=== PATIENT | female | born 1990 ===

== ENCOUNTER 2021-02-08 16:11 | Emergency (ER) | payer OTHER, SELFPAY ==
[2021-02-08 16:28] VITALS: BP 181/110; PULSE 72; RESP 16; TEMP 36.6; O2SAT 100; BMI 25.8
[2021-02-08 17:22] LABS: Add Manual Diff / Slide Review NO; Basophils Absolute Auto 0 /uL (0-100); Basophils Percent Auto 0.6 % (0-2); Eosinophils Absolute Auto 0 /uL (0-450); Eosinophils Percent Auto 0.6 % (2-4); Hematocrit 37.9 % (36-46); Hemoglobin 12.4 g/dL (12.0-16.0); Lymphocytes Absolute Auto 2300 /uL (1100-4500); Lymphocytes Percent Auto 41.5 % (25-40); Mean Corpuscular HGB Conc 32.7 % (30-36); Mean Corpuscular Hemoglobin 26.8 PG (26-34); Mean Corpuscular Volume 82.1 fL (80-100); Monocytes Absolute Auto 400 /uL (0-900); Monocytes Percent Auto 7.7 % (3-14); Neutrophils Absolute Auto 2800 /uL (1500-7000); Neutrophils Percent Auto 49.6 % (50-75); Platelet Count 193 X10^3/uL (150-400); Red Blood Cell Count 4.61 X10^6/uL (4.0-5.2); Red Cell Distribution Width 13.4 % (11.6-14.8); White Blood Cell Count 5.6 X10^3/uL (4.5-11.0)
[2021-02-08 17:35] LABS: Acetaminophen < 10 ug/mL (10-30); Alanine Aminotransferase 15 IU/L (<35); Albumin 4.4 g/dL (3.5-5.0); Albumin Globulin Ratio 1.2 (1.0-2.8); Alkaline Phosphatase 85 U/L (38-126); Aspartate Aminotransferase 25 IU/L (14-36); BUN Creatinine Ratio 18.3 (6-22); Bilirubin Total 0.2 mg/dL (0.2-1.3); Blood Urea Nitrogen 13 mg/dL (7-17); Calcium 9.5 mg/dL (8.4-10.2); Carbon Dioxide 28 mmol/L (22-32); Chloride 103 mmol/L (98-107); Estimated Glomerular Filt Rate > 60.0 mL/min (>60); Ethanol (ETOH) < 10 mg/dL; Globulin 3.6 g/dL (1.7-4.1); Glucose 88 mg/dL (70-100); HEMOLYSIS < 15 (0-50); Potassium 4.3 mmol/L (3.4-5.1); Salicylate < 1.0 mg/dL (<20); Sodium 139 mmol/L (137-145)
[2021-02-08 17:50] LABS: Free T4, Direct Thyroxine 1.04 ng/dL (0.78-2.19)
[2021-02-08 18:04] LABS: Thyroid Stimulating Hormone 0.834 uIU/mL (0.47-4.68)
--- NOTE | 2021-02-08 18:42 | ED.PSYCH ---
HPI - Psych <Keenan Edwards PA-C - Last Filed: 02/08/21 20:50> General Chief Complaint: Psychiatric Symptoms Stated Complaint: suicidal ideations Time Seen by Provider: 02/08/21 18:37 Source: patient Mode of arrival: Ambulatory History of Present Illness HPI Narrative: Rhonda presents with chief complaint of increased stress, anger and thoughts of thinking it might be better off if she was that occurred earlier today. She reports that over the last 2 months she has been talking to a counselor for her anger. She also started having seizures in October of this year and is currently being evaluated by her PCP with a neurologist consult in place. She has had an MRI 1 month ago and is scheduled for an EEG next week. Because of the seizures, she was just told that she cannot be driving her vehicle. This has left her feeling helpless. She denies any plan to hurt herself or anyone else. She denies any history of this happening in the past. Because of her seizures, she is also being from the [place] and is unsure of what she will do next. She talks with a counselor once weekly but is thinking that she will likely need to increase that back up to 2 times a week. Related Data Allergies Allergy/AdvReac Type Severity Reaction Status Date / Time No Known Drug Allergies Allergy Verified 02/08/21 16:41 Review of Systems <Keenan Edwards PA-C - Last Filed: 02/08/21 20:50> Review of Systems Narrative: As per HPI Patient History <Keenan Edwards PA-C - Last Filed: 02/08/21 20:50> Social History Smoking Status: Never smoker Smoking Status: Never smoker Substance Use Type: does not use Exam <Keenan Edwards PA-C - Last Filed: 02/08/21 20:50> Narrative Exam Narrative: Exam Narrative: Const General: cooperative, healthy appearing, comfortable, no acute distress, well developed and well groomed Nutritional Appearance: average body habitus Orientation: alert and oriented x3 HENMT Head: normal to inspection and atraumatic Ears: hearing grossly normal bilaterally Nose: external nose normal and nares normal Face and sinus: normal facial exam Neck Neck: normal visual inspection and supple Resp Effort & Inspection: normal respiratory effort, able to speak in complete sentences, no audible wheezes, not labored, no nasal flaring and no respiratory distress Neuro General: alert, oriented x3, gait normal, tone normal and moves all extremities Cognition: normal cognition Speech: speech normal Gait: normal gait Psych Appearance: grossly normal and well kempt Mental Status: mental status grossly normal Speech and Movement: speech and movement normal Mood: congruent mood Affect: normal affect Admits suicidal thoughts but denies any suicidal intention or plan. No thoughts of homicide. Initial Vital Signs Initial Vital Signs: Vital Signs Temperature 97.8 F 02/08/21 16:28 Pulse Rate 72 02/08/21 16:28 Respiratory Rate 16 02/08/21 16:28 Blood Pressure 181/110 H 02/08/21 16:28 Pulse Oximetry 100 02/08/21 16:28 <Wyatt Kapadia DO - Last Filed: 02/10/21 23:16> Initial Vital Signs Initial Vital Signs: Vital Signs Temperature 97.8 F 02/08/21 16:28 Pulse Rate 72 02/08/21 16:28 Respiratory Rate 16 02/08/21 16:28 Blood Pressure 181/110 H 02/08/21 16:28 Pulse Oximetry 100 02/08/21 16:28 Course <Keenan Edwards PA-C - Last Filed: 02/08/21 20:50> Orders Ordered: Discontinued Medications Acetaminophen (Acetaminophen 325 Mg Tablet) 975 mg PO NOW ONE Stop: 02/08/21 18:48 Last Admin: 02/08/21 18:53 Dose: 975 mg Documented by: SASHA Vital Signs Vital signs: Vital Signs - 8 hr 02/08/21 16:28 Temperature 97.8 F Pulse Rate 72 Respiratory Rate 16 Blood Pressure 181/110 H Pulse Oximetry 100 <Wyatt Kapadia DO - Last Filed: 02/10/21 23:16> Orders Ordered: Discontinued Medications Acetaminophen (Acetaminophen 325 Mg Tablet) 975 mg PO NOW ONE Stop: 02/08/21 18:48 Last Admin: 02/08/21 18:53 Dose: 975 mg Documented by: SASHA Vital Signs Vital signs: Vital Signs - 8 hr 02/08/21 16:28 Temperature 97.8 F Pulse Rate 72 Respiratory Rate 16 Blood Pressure 181/110 H Pulse Oximetry 100 MDM - Psych <Keenan Edwards PA-C - Last Filed: 02/08/21 20:50> Lab Data Result diagrams: 02/08/21 17:01 02/08/21 17:01 Labs: Lab Results 02/08/21 02/08/21 02/08/21 Range/Units 17:01 17:01 17:01 WBC 5.6 (4.5-11.0) X10^3/uL RBC 4.61 (4.0-5.2) X10^6/uL Hgb 12.4 (12.0-16.0) g/dL Hct 37.9 (36-46) % MCV 82.1 (80-100) fL MCH 26.8 (26-34) PG MCHC 32.7 (30-36) % RDW 13.4 (11.6-14.8) % Plt Count 193 (150-400) X10^3/uL Neut % (Auto) 49.6 L (50-75) % Lymph % (Auto) 41.5 H (25-40) % [place] % (Auto) 7.7 (3-14) % Eos % (Auto) 0.6 L (2-4) % Baso % (Auto) 0.6 (0-2) % Neut # (Auto) 2800 (0304-2751) /uL Lymph # (Auto) 2300 (4751-1715) /uL [place] # (Auto) 400 (0-900) /uL Eos # (Auto) 0 (0-450) /uL Baso # (Auto) 0 (0-100) /uL Sodium 139 (137-145) mmol/L Potassium 4.3 (3.4-5.1) mmol/L Chloride 103 (98-107) mmol/L Carbon Dioxide 28 (22-32) mmol/L BUN 13 (7-17) mg/dL Creatinine 0.71 (0.52-1.04) mg/dL Estimated GFR > 60.0 (>60) mL/min BUN/Creatinine Ratio 18.3 (6-22) Glucose 88 (70-100) mg/dL Calcium 9.5 (8.4-10.2) mg/dL Total Bilirubin 0.2 (0.2-1.3) mg/dL AST 25 (14-36) IU/L ALT 15 (<35) IU/L Alkaline Phosphatase 85 (38-126) U/L Total Protein 8.0 (6.3-8.2) g/dL Albumin 4.4 (3.5-5.0) g/dL Globulin 3.6 (1.7-4.1) g/dL Albumin/Globulin Ratio 1.2 (1.0-2.8) TSH 0.834 (0.47-4.68) uIU/mL Free T4 1.04 (0.78-2.19) ng/dL Salicylates < 1.0 (<20) mg/dL Acetaminophen < 10 L (10-30) ug/mL Ethyl Alcohol < 10 ( - 10) mg/dL Point of Care Testing Test Results Negative Urine Dip Bedside Urine Glucose Negative Bedside Urine Bilirubin - Negative Bedside Urine Ketone - Negative Urine Specific Republic 1.030 Bedside Urine Occult Blood +++ Bedside Urine pH 6.0 Bedside Urine Protein - Negative Bedside Urine Urobilinogen - Negative Bedside Urine Nitrite - Negative Bedside Urine Leukocytes - Negative Esterase MDM Narrative Medical decision making narrative: Patient is well-appearing at this time. Plan is in place through social Work and the patient. She has an appointment set up with her therapist tomorrow. She was given the emergency crisis lines and encouraged to return here if her symptoms should worsen in any way. She reports that now that she is here she has been able to wrap her head around what is going on. She no longer has any thoughts of wanting to hurt herself at this time. <Wyatt Kapadia, DO - Last Filed: 02/10/21 23:16> Lab Data Labs: Lab Results 02/08/21 02/08/21 02/08/21 Range/Units 17:01 17:01 17:01 WBC 5.6 (4.5-11.0) X10^3/uL RBC 4.61 (4.0-5.2) X10^6/uL Hgb 12.4 (12.0-16.0) g/dL Hct 37.9 (36-46) % MCV 82.1 (80-100) fL MCH 26.8 (26-34) PG MCHC 32.7 (30-36) % RDW 13.4 (11.6-14.8) % Plt Count 193 (150-400) X10^3/uL Neut % (Auto) 49.6 L (50-75) % Lymph % (Auto) 41.5 H (25-40) % [place] % (Auto) 7.7 (3-14) % Eos % (Auto) 0.6 L (2-4) % Baso % (Auto) 0.6 (0-2) % Neut # (Auto) 2800 (2812-1420) /uL Lymph # (Auto) 2300 (0654-8460) /uL [place] # (Auto) 400 (0-900) /uL Eos # (Auto) 0 (0-450) /uL Baso # (Auto) 0 (0-100) /uL Sodium 139 (137-145) mmol/L Potassium 4.3 (3.4-5.1) mmol/L Chloride 103 (98-107) mmol/L Carbon Dioxide 28 (22-32) mmol/L BUN 13 (7-17) mg/dL Creatinine 0.71 (0.52-1.04) mg/dL Estimated GFR > 60.0 (>60) mL/min BUN/Creatinine Ratio 18.3 (6-22) Glucose 88 (70-100) mg/dL Calcium 9.5 (8.4-10.2) mg/dL Total Bilirubin 0.2 (0.2-1.3) mg/dL AST 25 (14-36) IU/L ALT 15 (<35) IU/L Alkaline Phosphatase 85 (38-126) U/L Total Protein 8.0 (6.3-8.2) g/dL Albumin 4.4 (3.5-5.0) g/dL Globulin 3.6 (1.7-4.1) g/dL Albumin/Globulin Ratio 1.2 (1.0-2.8) TSH 0.834 (0.47-4.68) uIU/mL Free T4 1.04 (0.78-2.19) ng/dL Salicylates < 1.0 (<20) mg/dL Acetaminophen < 10 L (10-30) ug/mL Ethyl Alcohol < 10 ( - 10) mg/dL Point of Care Testing Test Results Negative Urine Dip Bedside Urine Glucose Negative Bedside Urine Bilirubin - Negative Bedside Urine Ketone - Negative Urine Specific Republic 1.030 Bedside Urine Occult Blood +++ Bedside Urine pH 6.0 Bedside Urine Protein - Negative Bedside Urine Urobilinogen - Negative Bedside Urine Nitrite - Negative Bedside Urine Leukocytes - Negative Esterase Discharge Plan Departure Patient Disposition: Home Clinical Impression: Depression with suicidal ideation Instructions: DI for Suicidal Ideation-Adult Activity Restrictions/Additional Instructions: It was very nice to meet you this evening. I am so sorry that you are going through this hard situation right now. Please use the resources that were provided to by the social media developer to get more help. I would like you to follow-up with your counselor as we discussed. If you start to have any plans of hurting yourself or anyone else do not hesitate return immediately for re-evaluation. Thank you Keenan Edwards PA-C <Wyatt Kapadia DO - Last Filed: 02/10/21 23:16> Cosign ED Attending Cosignature Attestation: I was immediately available in the department for consultation. This documentation has been reviewed and I agree with assessment and plan. Supervised by Wyatt Kapadia DO
[2021-02-08] MEDS: ACETAMINOPHEN 325 MG TABLET 975 MG PO (18:53)
--- NOTE | 2021-02-08 19:19 | CM.SWNOTE ---
FACILITY COORDINATOR Assessment FACILITY COORDINATOR - Rail Detector Car Operator Assessment FACILITY COORDINATOR/Rail Detector Car Operator Assessment Time Spent with Patient Start date 02/08/21 Visit Start Time 18:00 End date 02/08/21 Visit End Time 18:45 Total time Care Management spent on 45 patient visit-in minutes Mental Health Screening Include Onset, Duration, Intensity Presenting Problem Patient presents to the ED with concerns for SI, feeling frustrated and a burden. Precipitating Event(s) Patient started having seizures in October 2020 and has not been able to drive since then, patient had a seizure recently and continues to not be able to drive until she is free of seizures for 6 months. Patient Strengths Patient has good supports and is seeking help. Current Behavioral Health Provider(s) Patient sees therapist at [facility], Provider, Ph. [facility] and has appt with therapist tomorrow. Psych. Hx Mental Health and Chemical Patient has hx of depression, Dependency and seizures. Patient recently prescribed Sertaline. Patient denies substance use. Family Hx of Behavioral Abuse None reported Psychiatric Hospitalizations (date(s)/ No hx. location) Psychosocial information & Support Patient is 30 y/o female who Systems resides in [place], moved here from the [facility]. Patient has friends, coworkers and family via phone as supports. School/Work Active in the [employer] Legal Concerns Legal Matters - Outstanding Issues None reported Mental Status Orientation (Person/Place/Time) A/Ox4 Stated Mood guilty Affect (Congruent with Mood?) euthymic, full range, congruent with mood Thought Content - Specify/Describe None reported Obsessions, Delusions, Hallucinations Thought Processes (Jakmnyr-Ueyparlw-Ybal coherent Ellwngas-Gsnlfkvv-Uxbjodhhny- Hdfokcpqqxhqpt-Lexvvfz-Symxgihpuaqp- Thought Blocking) Speech (Mgzcoc-Lwea-Xaaluob-Rapid-Soft- normal/soft Loud-Pressured) Motor (Uavixr-Tjmqtoejy-Qsft-Other) Normal, not formally assessed Insight (Nbuj-Cetr-Fsgg/Limited) Fair/Good Judgement (Hpxd-Zulz-Pisl/Limited) Fair Impulse Control (Adequate-Impaired) Adequate Memory (Rpefwcywo-Fffmex-Enbdue, Intact Impaired-Intact) Concentration (Intact-Impaired) Intact Attention (Intact-Impaired) Intact Behavior (Appropriate-Inappropriate) Appropriate Additional Comment Patient is calm and communicative. Risk Assessment Suicidal Ideation (Plan) Yes Homicidal Ideation (Plan) No Comment Patient endorses thoughts of SI, no specific plan. Patient denies HI. Patient endorses thoughts of people being better off without her because she is a burden and endorses feeling really low today and she would have grabbed anything to harm herself but she did not. Patient endorses feeling better after speaking with her friend and mother. Intervention Intervention FACILITY COORDINATOR enters room to meet with patient. Patient is present with co-worker who patient feels comfortable meet with. Patient endorses having a bad day earlier and feeling like a burden and guilty about the need for others to provide transportation for her due to her seizures. Patient endorses that she thought of harming herself and SI earlier today but denies current SI. Patient endorses it is mostly frustration, anger and guilt. Patient endorses that she has seen a therapist since October 2020 when she started having seizures and she has an appt tomorrow. Patient endorses she is not interested in inpatient and states that she receives more support from communicating with friends, family and therapist. FACILITY COORDINATOR provides crisis contact information to patient and patient's friend endorses he is well versed in mental health support and an ongoing support for patient as well. It is the opinion of this FACILITY COORDINATOR that patient is safe to d/c to home. FACILITY COORDINATOR reviews the above with ED provider Keenan Edwards PA-C who indicates agreement and understanding. Plan RA Plan Patient to d/c to home when medically clear with crisis contact information and a f/u outpatient appt tomorrow. JT Pastrana
== END 2021-02-08 19:13 | disposition home or self-care (01) ==
PROVIDERS: Emergency Medicine; Emergency Provider Physician Assistant
DX: R45.851 Suicidal ideations (principal); F32.A Depression, unspecified
CPT/HCPCS: 36415; 80053; 80320; 80329; 81003; 81025; 84439; 84443; 85025; 99284; G0480

== ENCOUNTER 2021-07-04 12:24 | Emergency (ER) | payer OTHER, SELFPAY ==
[2021-07-04 12:29] VITALS: BP 146/84; PULSE 72; RESP 16; TEMP 36.3; O2SAT 97; BMI 27.8
--- NOTE | 2021-07-04 12:43 | ED.SEIZURE ---
HPI - Seizure General Chief Complaint: Seizure Stated Complaint: Seizure Time Seen by Provider: 07/04/21 12:34 History of Present Illness HPI Narrative: Patient is a 30-year-old female history of seizures he takes Keppra presenting today with seizure. [facility] [place] [facility] with. She was previously diagnosed intubated and in the ICU in different state. She says they are changing her medications he. She has also been having increasing migraine she had an appointment her primary care provider today for her migraines they are trying to her medications for that. While waiting to see the doctor she had 2 seizures 1 minute apart. She says he now generally feels weak. She also had some added stress she has some family issues going on with her mother. She says that stress also makes her seizures worse. She has not had any fever or chills. No injury from her seizure today. She is ambulatory in the emergency department. Related Data Allergies Allergy/AdvReac Type Severity Reaction Status Date / Time No Known Drug Allergies Allergy Verified 02/08/21 16:41 Review of Systems Review of Systems Narrative: GENERAL: Denies chills, fatigue, malaise, fever, sweats, travel HEENT: Denies sinus pain, ear pain, sore throat, difficulty swallowing, neck pain RESPIRATORY: Denies dyspnea, cough, wheezing, hemoptysis, sputum. CARDIOVASCULAR: Denies chest pain, palpitations, orthopnea, edema GASTROINTESTINAL: Denies nausea, vomiting, abdominal pain, diarrhea, constipation, melena. : Denies dysuria, frequency, incontinence, hematuria, urinary retention, flank pain. MUSCULOSKELETAL: Denies weakness, joint pain, or bony pain SKIN: No rash, no erythema, no pruritus NEUROLOGIC: See HPI PSYCHIATRIC: No concerning psychosocial issues. 12 point review of systems is negative except for those stated above and HPI Patient History Medical History Seizure Social History Smoking Status: Never smoker Smoking Status: Never smoker Substance Use Type: does not use Exam Initial Vital Signs Initial Vital Signs: Vital Signs Temperature 97.4 F L 07/04/21 12:29 Pulse Rate 72 07/04/21 12:29 Respiratory Rate 16 07/04/21 12:29 Blood Pressure 146/84 H 07/04/21 12:29 Pulse Oximetry 97 07/04/21 12:29 GENERAL: Alert well-appearing 30-year-old female in no acute distress. HEENT: Head atraumatic,EOMI, pupils reactive, face symmetric, moist mucous membranes CARDIOVASCULAR: Regular rate and rhythm without murmurs, rubs or gallops. RESPIRATORY: Breath sounds equal bilaterally, no wheezes rales or rhonchi. ABDOMEN: Soft, nontender. Normoactive bowel sounds all 4 quadrants. No guarding or rebound. EXTREMITIES: Normal range of motion, no clubbing or edema. Neurovascularly intact NEUROLOGICAL: Alert and oriented x4.Normal gait and speech. Cranial nerves II through XII grossly intact. Good rabuvo-ed-xpln, good bjbi-ex-ygfo, strength equal bilaterally, no dysarthria or aphasia, sensation in tact to soft touch bilaterally, no visual changes, no facial droop SKIN: Warm, dry, no laceration, no petechiae, no rashes or lesions. Scores NIH Stroke Scale Level of Conciousness: Alert, keenly responsive Ask month/age: Answers both questions correctly. Open/close eyes, close hand: Performs both tasks correctly Best gaze horizontal: Normal Visual vergara: No visual loss Facial palsy: Normal symetrical movement Left arm drift: No drift for full 10 sec Right arm drift: No drift for full 10 sec Left leg drift: No drift for full 5 sec Right leg drift: No drift for full 5 sec Limb ataxia: Absent Sensory on face/arms/legs: Normal, no sensory loss Best language: No aphasia, normal Dysarthria: Normal Extinction or inattention: No abnormality Total NIH Stroke scale score: 0 Course Orders Ordered: ED Orders 07/04/21 12:35 Test Urine Stat Urinalysis and Microscopic Stat Urine Drug Screen, Rapid Stat 07/04/21 12:44 CT head/brain wo con Stat CMP [Comprehensive Metabolic Panel] Stat 07/04/21 13:07 Complete Blood Count AUTO DIFF Stat Magnesium Stat Prolactin Stat Discontinued Medications Sodium Chloride (Normal Saline 0.9%) 1,000 mls @ 1,000 mls/hr IV BOLUS ONE Stop: 07/04/21 13:42 Last Infusion: 07/04/21 14:16 Dose: 0 mls/hr Documented by: Admin: 07/04/21 13:21 Dose: 1,000 mls/hr Documented by: CLARKE Vital Signs Vital signs: Vital Signs - 8 hr 07/04/21 12:29 07/04/21 12:58 07/04/21 13:00 Temperature 97.4 F L Pulse Rate 72 69 71 Respiratory Rate 16 25 H 14 Blood Pressure 146/84 H Pulse Oximetry 97 100 07/04/21 13:29 07/04/21 13:30 07/04/21 14:00 Temperature Pulse Rate 65 67 71 Respiratory Rate 19 15 27 H Blood Pressure 135/84 135/85 Pulse Oximetry 100 MDM - Seizure Lab Data Result diagrams: 07/04/21 13:07 07/04/21 12:44 Labs: Lab Results 07/04/21 07/04/21 07/04/21 Range/Units 12:35 12:35 12:35 WBC (4.5-11.0) X10^3/uL RBC (4.0-5.2) X10^6/uL Hgb (12.0-16.0) g/dL Hct (36-46) % MCV (80-100) fL MCH (26-34) PG MCHC (30-36) % RDW (11.6-14.8) % Plt Count (150-400) X10^3/uL Neut % (Auto) (50-75) % Lymph % (Auto) (25-40) % Whitman % (Auto) (3-14) % Eos % (Auto) (2-4) % Baso % (Auto) (0-2) % Neut # (Auto) (7187-0366) /uL Lymph # (Auto) (6140-0040) /uL Whitman # (Auto) (0-900) /uL Eos # (Auto) (0-450) /uL Baso # (Auto) (0-100) /uL Sodium (137-145) mmol/L Potassium (3.4-5.1) mmol/L Chloride (98-107) mmol/L Carbon Dioxide (22-32) mmol/L BUN (7-17) mg/dL Creatinine (0.52-1.04) mg/dL Estimated GFR (>60) mL/min BUN/Creatinine Ratio (6-22) Glucose (70-100) mg/dL Calcium (8.4-10.2) mg/dL Magnesium (1.6-2.3) mg/dL Total Bilirubin (0.2-1.3) mg/dL AST (14-36) IU/L ALT (<35) IU/L Alkaline Phosphatase (38-126) U/L Total Protein (6.3-8.2) g/dL Albumin (3.5-5.0) g/dL Globulin (1.7-4.1) g/dL Albumin/Globulin Ratio (1.0-2.8) Prolactin (3.0-18.6) ng/mL Urine Color Yellow Urine Appearance Clear Urine pH 7.0 (4.5-8.0) Ur Specific [place] 1.010 (1.000-1.035) Urine Protein Negative (Negative) Urine Glucose (UA) Negative (Negative) g/dL Urine Ketones Negative (NEGATIVE) Urine Occult Blood Trace-lysed (Negative) Urine Nitrate Negative (Negative) Urine Bilirubin Negative (NEGATIVE) Urine Urobilinogen 0.2 (0.2) E.U./dL Ur Leukocyte Esterase Negative (NEGATIVE) Urine RBC 1-5/hpf (0-5/HPF) Urine WBC None seen (0-5/HPF) Urine Bacteria None seen (None) Ur Culture Indicated? Cult not indicated Urine Test Negative (Negative) U Opiates 300ng/mL cut Negative (Negative) Ur Oxycodone Screen Negative (Negative) Urine Methadone Screen Negative (Negative) Ur Barbiturates Screen Negative (Negative) U Tricyclic Antidepress Negative (Negative) Ur Phencyclidine Scrn Negative (Negative) Ur Amphetamines Screen Negative (Negative) U Methamphetamines Scrn Negative (Negative) Ur MDMA Scrn (Ecstasy) Negative (Negative) U Benzodiazepines Scrn Negative (Negative) Urine Cocaine Screen Negative (Negative) U Marijuana (THC) Screen Negative (Negative) 07/04/21 07/04/21 07/04/21 Range/Units 12:44 13:07 13:07 WBC 9.8 (4.5-11.0) X10^3/uL RBC 4.33 (4.0-5.2) X10^6/uL Hgb 11.6 L (12.0-16.0) g/dL Hct 35.5 L (36-46) % MCV 82.0 (80-100) fL MCH 26.8 (26-34) PG MCHC 32.7 (30-36) % RDW 13.8 (11.6-14.8) % Plt Count 175 (150-400) X10^3/uL Neut % (Auto) 88.2 H (50-75) % Lymph % (Auto) 10.1 L (25-40) % Whitman % (Auto) 1.5 L (3-14) % Eos % (Auto) 0.0 L (2-4) % Baso % (Auto) 0.2 (0-2) % Neut # (Auto) 8700 H (2534-2896) /uL Lymph # (Auto) 1000 L (9929-9510) /uL Whitman # (Auto) 100 (0-900) /uL Eos # (Auto) 0 (0-450) /uL Baso # (Auto) 0 (0-100) /uL Sodium 137 (137-145) mmol/L Potassium 4.2 (3.4-5.1) mmol/L Chloride 107 (98-107) mmol/L Carbon Dioxide 23 (22-32) mmol/L BUN 12 (7-17) mg/dL Creatinine 0.70 (0.52-1.04) mg/dL Estimated GFR > 60.0 (>60) mL/min BUN/Creatinine Ratio 17.1 (6-22) Glucose 127 H (70-100) mg/dL Calcium 9.1 (8.4-10.2) mg/dL Magnesium 2.1 (1.6-2.3) mg/dL Total Bilirubin 0.4 (0.2-1.3) mg/dL AST 19 (14-36) IU/L ALT 16 (<35) IU/L Alkaline Phosphatase 65 (38-126) U/L Total Protein 7.9 (6.3-8.2) g/dL Albumin 4.4 (3.5-5.0) g/dL Globulin 3.5 (1.7-4.1) g/dL Albumin/Globulin Ratio 1.3 (1.0-2.8) Prolactin 19.9 H (3.0-18.6) ng/mL Urine Color Urine Appearance Urine pH (4.5-8.0) Ur Specific [place] (1.000-1.035) Urine Protein (Negative) Urine Glucose (UA) (Negative) g/dL Urine Ketones (NEGATIVE) Urine Occult Blood (Negative) Urine Nitrate (Negative) Urine Bilirubin (NEGATIVE) Urine Urobilinogen (0.2) E.U./dL Ur Leukocyte Esterase (NEGATIVE) Urine RBC (0-5/HPF) Urine WBC (0-5/HPF) Urine Bacteria (None) Ur Culture Indicated? Urine Test (Negative) U Opiates 300ng/mL cut (Negative) Ur Oxycodone Screen (Negative) Urine Methadone Screen (Negative) Ur Barbiturates Screen (Negative) U Tricyclic Antidepress (Negative) Ur Phencyclidine Scrn (Negative) Ur Amphetamines Screen (Negative) U Methamphetamines Scrn (Negative) Ur MDMA Scrn (Ecstasy) (Negative) U Benzodiazepines Scrn (Negative) Urine Cocaine Screen (Negative) U Marijuana (THC) Screen (Negative) Imaging Data CT scan - head: Radiologist's Impression: PROCEDURE:? CT HEAD/BRAIN WO CON ? INDICATIONS:? worsening migraines and headaches ? TECHNIQUE:? Noncontrast 4.5 mm thick angled axial sections acquired from the foramen magnum to the vertex, with coronal and sagittal reformats.? For radiation dose reduction, the following was used:? automated exposure control, adjustment of mA and/or kV according to patient size.? ? COMPARISON:? None. ? FINDINGS:? Image quality:? Excellent.? ? CSF spaces:? Basal cisterns are patent.? No extra-axial fluid collections.? Ventricles are normal in size and shape.? ? Brain:? No midline shift.? No intracranial masses or hemorrhage.? Terry-white matter interface is normal.? ? Skull and face:? Calvarium and visualized facial bones are intact, without suspicious lesions.? ? Sinuses:? Visualized sinuses and mastoids are clear.? ? IMPRESSION:? ? 1. No acute intracranial abnormalities. ? ? Dictated by: Keira Orellana M.D. on 07/04/2021 at 13:44 ? ? MDM Narrative Medical decision making narrative: PATIENT OVERALL IS FEELING BETTER. BLOOD WORK IS OVERALL REASSURING. SHE DOES HAVE SOMEONE WHO SHE FOLLOWS FOR HER SEIZURES. RECOMMEND she follow-up as an outpatient. Discharge Plan Departure Patient Disposition: Home Clinical Impression: Seizure Instructions: DI for Seizure Disorder -- Adult Activity Restrictions/Additional Instructions: DO NOT dRIVE *You have been diagnosed with seizure *What to do: At this time please follow-up with [facility]. If you have recurrence of seizure for more frequent seizures your medication may need to be adjusted. *Continue to take medications as directed *Follow up with your primary care provider in 2-3 days or call [phone] *Return to ER if you should have recurrent seizure, confusion, weakness, numbness, tingling or any new, worsening or concerning symptoms Referrals: Boo Rivas MD [Primary Care Provider] - Stand Alone Forms: Work Release Note
--- NOTE | 2021-07-04 12:44 | DI.CT.S_ITS ---
PROCEDURE: CT HEAD/BRAIN WO CON INDICATIONS: worsening migraines and headaches TECHNIQUE: Noncontrast 4.5 mm thick angled axial sections acquired from the foramen magnum to the vertex, with coronal and sagittal reformats. For radiation dose reduction, the following was used: automated exposure control, adjustment of mA and/or kV according to patient size. COMPARISON: None. FINDINGS: Image quality: Excellent. CSF spaces: Basal cisterns are patent. No extra-axial fluid collections. Ventricles are normal in size and shape. Brain: No midline shift. No intracranial masses or hemorrhage. Terry-white matter interface is normal. Skull and face: Calvarium and visualized facial bones are intact, without suspicious lesions. Sinuses: Visualized sinuses and mastoids are clear. IMPRESSION: 1. No acute intracranial abnormalities. Dictated by: Keira Orellana M.D. on 07/04/2021 at 13:44 Approved by: Keira Orellana M.D. on 07/04/2021 at 13:45
[2021-07-04 12:58] VITALS: PULSE 69; RESP 25
[2021-07-04 12:59] LABS: UR Morphine/Opiate cutoff 300 Negative (Negative); Ur Creatinine Normal (Normal); Ur Specific Gravity Normal (Normal); Urine Amphetamines Negative (Negative); Urine Barbiturates Negative (Negative); Urine Benzodiazepines Negative (Negative); Urine Cocaine Negative (Negative); Urine MDMA Negative (Negative); Urine Methadone Negative (Negative); Urine Methamphetamines Negative (Negative); Urine Oxycodone Negative (Negative); Urine Phencyclidine Negative (Negative); Urine Tetrahydrocannabinol Negative (Negative); Urine Tricyclic Antidepressant Negative (Negative); Urine pH Normal (Normal)
[2021-07-04 13:00] VITALS: PULSE 71; RESP 14; O2SAT 100
[2021-07-04 13:01] LABS: Appearance Urine UA CLEAR; Bilirubin Urine UA NEGATIVE (NEGATIVE); Color Urine UA YELLOW; Glucose Urine UA NEGATIVE (Negative); Ketones Urine UA NEGATIVE (NEGATIVE); Leukocyte Esterase Urine UA NEGATIVE (NEGATIVE); Nitrite Urine UA NEGATIVE (Negative); Occult Blood Urine UA TRACE-LYSED (Negative); Protein Urine UA NEGATIVE (Negative); Urobilinogen Urine UA 0.2 E.U./dL (0.2)
[2021-07-04 13:18] LABS: Add Manual Diff / Slide Review NO; Basophils Absolute Auto 0 /uL (0-100); Basophils Percent Auto 0.2 % (0-2); Eosinophils Absolute Auto 0 /uL (0-450); Hematocrit 35.5 % (36-46); Hemoglobin 11.6 g/dL (12.0-16.0); Lymphocytes Absolute Auto 1000 /uL (1100-4500); Lymphocytes Percent Auto 10.1 % (25-40); Mean Corpuscular HGB Conc 32.7 % (30-36); Mean Corpuscular Hemoglobin 26.8 PG (26-34); Monocytes Absolute Auto 100 /uL (0-900); Monocytes Percent Auto 1.5 % (3-14); Neutrophils Absolute Auto 8700 /uL (1500-7000); Neutrophils Percent Auto 88.2 % (50-75); Platelet Count 175 X10^3/uL (150-400); Red Blood Cell Count 4.33 X10^6/uL (4.0-5.2); Red Cell Distribution Width 13.8 % (11.6-14.8); White Blood Cell Count 9.8 X10^3/uL (4.5-11.0)
[2021-07-04 13:20] LABS: Bacteria Urine None Seen; Culture Indicated Urine Cult Not Indicated; RBC Urine 1-5/HPF (0-5/HPF); WBC Urine None Seen (0-5/HPF)
[2021-07-04] MEDS: SODIUM CHLORIDE 0.9% 1,000 ML 1000 ML IV (13:21)
[2021-07-04 13:26] LABS: Pregnancy Test Urine Negative (Negative)
[2021-07-04 13:29] VITALS: BP 135/84; PULSE 65; RESP 19; O2SAT 100
[2021-07-04 13:30] VITALS: PULSE 67; RESP 15
[2021-07-04 13:33] LABS: Alanine Aminotransferase 16 IU/L (<35); Albumin 4.4 g/dL (3.5-5.0); Albumin Globulin Ratio 1.3 (1.0-2.8); Alkaline Phosphatase 65 U/L (38-126); Aspartate Aminotransferase 19 IU/L (14-36); BUN Creatinine Ratio 17.1 (6-22); Bilirubin Total 0.4 mg/dL (0.2-1.3); Blood Urea Nitrogen 12 mg/dL (7-17); Calcium 9.1 mg/dL (8.4-10.2); Carbon Dioxide 23 mmol/L (22-32); Chloride 107 mmol/L (98-107); Estimated Glomerular Filt Rate > 60.0 mL/min (>60); Globulin 3.5 g/dL (1.7-4.1); Glucose 127 mg/dL (70-100); HEMOLYSIS < 15 (0-50); Potassium 4.2 mmol/L (3.4-5.1); Sodium 137 mmol/L (137-145); Total Protein 7.9 g/dL (6.3-8.2)
[2021-07-04 13:42] LABS: Magnesium 2.1 mg/dL (1.6-2.3)
[2021-07-04 13:59] LABS: Prolactin 19.9 ng/mL (3.0-18.6)
[2021-07-04 14:00] VITALS: BP 135/85; PULSE 71; RESP 27
== END 2021-07-04 14:21 | disposition home or self-care (01) ==
PROVIDERS: Emergency Provider Emergency Medicine; PCP Family Medicine
DX: G40.909 Epilepsy, unspecified, not intractable, without status epilepticus (principal); Z79.899 Other long term (current) drug therapy
CPT/HCPCS: 70450; 80053; 80305; 81001; 81025; 83735; 84146; 85025; 96360; 99283; 99284

== ENCOUNTER 2021-07-16 15:53 | Emergency (ER) | payer OTHER, SELFPAY ==
[2021-07-16 16:07] VITALS: BP 158/98; PULSE 78; RESP 17; TEMP 36.6; O2SAT 100; BMI 27.8
--- NOTE | 2021-07-16 18:20 | PC.NURSE ---
Pt reports migraine has improved since she arrived, states she usually would take medication or caffeine to improve the pain but her neurologist recommends an MRI, imaging of the vessels while she is symptomatic so she did not do anything to improve the migraine today.
--- NOTE | 2021-07-16 19:13 | ED_ITS ---
HPI - Headache <LILLIAN Kate - Last Filed: 07/16/21 20:17> General Chief Complaint: Headache Stated Complaint: MIGRAINE Time Seen by Provider: 07/16/21 18:59 Mode of arrival: Ambulatory History of Present Illness HPI Narrative: 30-year-old female of seizure and migraines who presents to the emergency department for migraine headache requesting MRI imaging of her brain. Patient has a neurologist, she states she has daily migraines, she takes triptans at home when she needs to but she denies any medication today because her neurologist wanted her to get an MRI while she was having a migraine. Patient states this migraine is similar to her other migraines, she denies any vision changes, nausea vomiting, weakness, mental status changes, or other. Patient denies any recent trauma or seizure since her last seizure emergency department visit on 07/04/2021. Patient takes Keppra daily, she denies any need for medications as she has all her headache medications already. Related Data Home Medications Medication Instructions Recorded Confirmed gabapentin 300 mg capsule mg 07/16/21 levetiracetam 500 mg tablet 500 mg PO BID 07/16/21 07/16/21 mirtazapine 15 mg tablet mg 07/16/21 sertraline 100 mg tablet 100 mg PO DAILY 07/16/21 07/16/21 sumatriptan 5 mg/actuation nasal mg INTRANASAL 07/16/21 spray sumatriptan 5 mg/actuation nasal mg INTRANASAL 07/16/21 spray verapamil 80 mg tablet 80 mg PO DAILY 07/16/21 07/16/21 Allergies Allergy/AdvReac Type Severity Reaction Status Date / Time No Known Drug Allergies Allergy Verified 07/16/21 16:10 Review of Systems <LILLIAN Kate - Last Filed: 07/16/21 20:17> Review of Systems Narrative: General: denies fever, chills, malaise, sweats, fatigue Head/Neck: Endorses headache, denies neck pain, dizziness Eyes: denies visual changes, eye pain Cardio: denies chest pain, palpitations, edema Respiratory: denies dyspnea, cough, orthopnea GI: denies abdominal pain, nausea, vomiting, or diarrhea : denies dysuria, hematuria, urinary retention, frequency or incontinence MSK: denies joint pain, muscle weakness Skin: denies rash, itching, skin lesions or other Neuro: denies numbness, tingling Patient History <LILLIAN Kate - Last Filed: 07/16/21 20:17> Medical History Seizure Social History Smoking Status: Never smoker Smoking Status: Never smoker Substance Use Type: does not use Exam <LILLIAN Kate - Last Filed: 07/16/21 20:17> Narrative Exam Narrative: Independently reviewed vitals signs and nursing notes. General: cooperative, comfortable, in no acute distress, well developed and well groomed Head: atraumatic, symmetrical facial expressions Neck: supple, atraumatic, without lymphadenopathy. Eyes: pupils equal round and reactive, EOMI Nose: nares patent, no rhinorrhea Mouth/Throat: uvula midline, moist mucus membranes Cardiovascular: regular rate and rhythm, no peripheral edema, warm extremities Respiratory: normal effort, able to speak in complete sentences, no audible wheezing, stridor, or rales GI: abdomen soft, nontender to palpation, nondistended, no masses, no exquisite tenderness with exam, without guarding or rebound. MSK: moves all extremities, ambulatory w/steady gait, neurovascularly intact, no weakness Skin: brisk capillary refill, no rash, no erythema Neuro: normal speech and cognition, A&O x3, normal tone Psych: mental status is grossly normal, congruent mood, normal affect, pleasant and cooperative Initial Vital Signs Initial Vital Signs: Vital Signs Temperature 98 F 07/16/21 16:07 Pulse Rate 78 07/16/21 16:07 Respiratory Rate 17 07/16/21 16:07 Blood Pressure 158/98 H 07/16/21 16:07 Pulse Oximetry 100 07/16/21 16:07 <Simi Briggs DO - Last Filed: 07/17/21 07:57> Initial Vital Signs Initial Vital Signs: Vital Signs Temperature 98 F 07/16/21 16:07 Pulse Rate 78 07/16/21 16:07 Respiratory Rate 17 07/16/21 16:07 Blood Pressure 158/98 H 07/16/21 16:07 Pulse Oximetry 100 07/16/21 16:07 Course <LILILAN Kate - Last Filed: 07/16/21 20:17> Orders Ordered: Discontinued Medications Acetaminophen (Acetaminophen 325 Mg Tablet) 975 mg PO NOW ONE Stop: 07/16/21 19:08 Last Admin: 07/16/21 19:36 Dose: 975 mg Documented by: NICOLETTE Diphenhydramine HCl (Diphenhydramine 25 Mg Tablet) 25 mg PO NOW ONE Stop: 07/16/21 19:08 Last Admin: 07/16/21 19:36 Dose: 25 mg Documented by: NICOLETTE Ketorolac Tromethamine (Ketorolac 10 Mg Tablet) 10 mg PO NOW ONE Stop: 07/16/21 19:08 Last Admin: 07/16/21 19:36 Dose: 10 mg Documented by: NICOLETTE Metoclopramide HCl (Metoclopramide Hcl 10 Mg Tablet) 10 mg PO NOW ONE Stop: 07/16/21 19:08 Last Admin: 07/16/21 19:36 Dose: 10 mg Documented by: NICOLETTE Vital Signs Vital signs: Vital Signs - 8 hr 07/16/21 16:07 Temperature 98 F Pulse Rate 78 Respiratory Rate 17 Blood Pressure 158/98 H Pulse Oximetry 100 <Simi Briggs DO - Last Filed: 07/17/21 07:57> Orders Ordered: Discontinued Medications Acetaminophen (Acetaminophen 325 Mg Tablet) 975 mg PO NOW ONE Stop: 07/16/21 19:08 Last Admin: 07/16/21 19:36 Dose: 975 mg Documented by: NICOLETTE Diphenhydramine HCl (Diphenhydramine 25 Mg Tablet) 25 mg PO NOW ONE Stop: 07/16/21 19:08 Last Admin: 07/16/21 19:36 Dose: 25 mg Documented by: NICOLETTE Ketorolac Tromethamine (Ketorolac 10 Mg Tablet) 10 mg PO NOW ONE Stop: 07/16/21 19:08 Last Admin: 07/16/21 19:36 Dose: 10 mg Documented by: NICOLETTE Metoclopramide HCl (Metoclopramide Hcl 10 Mg Tablet) 10 mg PO NOW ONE Stop: 07/16/21 19:08 Last Admin: 07/16/21 19:36 Dose: 10 mg Documented by: NICOLETTE Vital Signs Vital signs: Vital Signs - 8 hr 07/16/21 16:07 Temperature 98 F Pulse Rate 78 Respiratory Rate 17 Blood Pressure 158/98 H Pulse Oximetry 100 MDM - Headache <Aliya WillLILLIAN - Last Filed: 07/16/21 20:17> [facility] Narrative Medical decision making narrative: This is a 30-year-old female who presents to the emergency department for migraine headaches seeking MRI imaging for her neurologist. Patient's neurologist is Dr. Avina and patient has a history of seizures and migraines and is currently on medications from Dr. Avina for these things. Patient had a seizure on 07/04/2021 and was seen in the emergency department here at [facility]. Patient states this migraine is normal for her, she endorses having daily migraines, she states she did not take any medications today because she wanted to have an MRI of her brain while she was having a migraine. Patient is without any focal neurologic deficit, she does not have any nausea or vomiting, she does not have photosensitivity. Patient was informed that we do not do routine MRI brains out of the emergency department and we were unable to complete this at this time especially because it is after hours and it is not due to trauma. Patient was given Toradol, Benadryl, Reglan, and Tylenol p.o. and instructed to drink plenty of water for her migraine. Patient did not want an IV or IV fluid treatment for this. Patient states that the only thing that helps is coffee, she was given a protein shake with coffee in it. Patient was instructed to follow up closely with Dr. Avina and ask for a outpatient MRI order. Patient states she will do this. Headache considerations include, but not limited to: Subarachnoid hemorrhage, but unlikely as patient denies sudden onset of pain, not worst of life, or neck pain. Meningitis considered, but thought unlikely given lack of Brudzinski's, Kernig's sign, altered mental status or fever. Giant cell arteritis considered, but thought unlikely given lack of unilateral findings, pain in episcopalian, vision change . HTN Emergency considered, but thought unlikely given normal vitals. Other serious diagnoses considered unlikely given lack of red flag findings such as sudden onset, increasing frequency, immunocompromise, systemic signs (fever, chills, stiff neck, or rash), focal neurologic findings, trauma, blood thinners, etc. Patient is appropriate and amenable to discharge home. Vital signs are stable on repeat examination is unremarkable. Patient has been informed of results. Patient has been given strict return to ER precautions for any new or worsening symptoms. Patient understands to follow up closely with outpatient providers as instructed. Patient understands plan and agrees to discharge home. All questions and concerns answered at this time. Discharge Plan Departure Patient Disposition: Home Clinical Impression: Migraine Instructions: DI for Migraine Activity Restrictions/Additional Instructions: *You have been diagnosed with a migraine. Please follow-up with Dr. Avina and ask her to order you a MRI as an outpatient and have the order be available for at least 2 weeks to allow you time to go on a day scheduled that you will have a headache. Please take your medications as prescribed, go home, rest, drink plenty water, and sleep as long as he needed. Please return to the emergency department if he cannot make your headache go way. 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 And please give her call tomorrow morning when you get up and try to get an appointment for follow-up after your MRI. Thank you for trusting us with your care, sorry that you were under the impression that we could order an MRI for this. *What to do: *Please continue to take your regular medications as directed. [ ] New medication prescriptions sent to your pharmacy: [ ] [ ] New medication written as a paper prescription [ x] No new medications given *Please follow up with your primary care provider in 2-3 days, call for an appointment. Let them know you were seen in the Emergency Department and that we asked that you be seen for follow-up. We will electronically transmit a record of today's note if your PCP is in our system *If you do not have a primary care provider please contact [phone] to establish care with one of the [facility] primary care providers. *Return to Emergency Department if you should have any new, worsening or concerning symptoms, such as [fever greater than 101F, chills, worsening pain, persistent vomiting or other bothersome symptoms] Prescriptions: No Action levetiracetam 500 mg tablet 500 mg PO BID 0RF sertraline 100 mg tablet 100 mg PO DAILY 0RF Label Comments: TAKE 1 TABLET BY MOUTH DAILY sumatriptan 5 mg/actuation spray,non-aerosol INTRANASAL 0RF Label Comments: INHALE 1 SPRAY IN ONE NOSTRIL NEEDED FOR HEADACHE. MAY REPEAT DOSE IN 1 HOUR IF NEEDED. ALTERNATE NOSTRILS WITH DOSES sumatriptan 5 mg/actuation spray,non-aerosol INTRANASAL 0RF Label Comments: INHALE 1 SPRAY IN ONE NOSTRIL NEEDED FOR HEADACHE. MAY REPEAT DOSE IN 1 HOUR IF NEEDED. ALTERNATE NOSTRILS WITH DOSES gabapentin 300 mg capsule 0RF Label Comments: TAKE 1 CAPSULE BY MOUTH TWICE DAILY mirtazapine 15 mg tablet 0RF Label Comments: TAKE 1/2 TABLET BY MOUTH EVERY EVENING AT BEDTIME. verapamil 80 mg tablet 80 mg PO DAILY 0RF Referrals: Boo Rivas MD [Primary Care Provider] - Stand Alone Forms: Work Release Note <Simi Briggs DO - Last Filed: 07/17/21 07:57> Cosign ED Attending Cosignature Attestation: I was immediately available in the department for consultation. Documentation has been reviewed. I agree with assessment and plan.
[2021-07-16] MEDS: diphenhydrAMINE 25 MG TABLET PO (19:36)
[2021-07-16] MEDS: KETOROLAC 10 MG TABLET PO (19:36)
[2021-07-16] MEDS: ACETAMINOPHEN 325 MG TABLET 975 MG PO (19:36)
[2021-07-16] MEDS: METOCLOPRAMIDE HCL 10 MG TABLET PO (19:36)
== END 2021-07-16 19:40 | disposition home or self-care (01) ==
PROVIDERS: Emergency Provider Nurse Practitioner Critical Care Medicine; PCP Family Medicine
DX: G43.909 Migraine, unspecified, not intractable, without status migrainosus (principal)
CPT/HCPCS: 99283